=== PATIENT | male | born 1970 | race Caucasian/White ===

== ENCOUNTER 2019-07-28 08:10 | Emergency (ER) | payer OTHER ==
[~2019-07-28] VITALS: Ht 182.9 cm; Wt 115.5 kg
[2019-07-28 08:15] VITALS: Ht 182.9 cm; Wt 115.5 kg
[2019-07-28] MEDS ORDERED: NORVASC5 MG PO (08:17)
[2019-07-28] MEDS ORDERED: BOTOX200 UNIT INTRADERM (08:18)
[2019-07-28] MEDS ORDERED: LIPITOR20 MG PO (08:19)
[2019-07-28] MEDS ORDERED: PAMELOR10 MG PO (08:19)
[2019-07-28] MEDS ORDERED: PLAVIX75 MG PO (08:20)
[2019-07-28] MEDS ORDERED: VITAMIN D31000 UNI2 PO (08:20)
[2019-07-28] MEDS ORDERED: OMEPRAZOLE20 M1 PO (08:21)
[2019-07-28] MEDS ORDERED: VIAGRA100 MG PO (08:22)
[2019-07-28 08:58] LABS: ANION GAP 11.2 mmol/L (8-16); BASOPHILS 0.3 % (0-2); CALCIUM 9.5 mg/dL (8.5-10.1); CREATININE - SERUM 1.3 mg/dL (0.6-1.3); EOSINOPHILS 3.4 % (0-7); HEMATOCRIT 52.1 % (42.0-54.0); HEMOGLOBIN 17.4 g/dL (13.5-17.5); IMMATURE GRANULOCYTES 0.3 % (0-5); LYMPHOCYTES 34.9 % (15-50); MCH 29.4 pg (26.0-34.0); MCHC 33.4 g/dL (31.0-37.0); MCV 88.2 fL (80.0-100.0); MEAN PLATELET VOLUME 9.7 fL (7.4-10.4); MONOCYTES 8.5 % (2-11); NEUTROPHILS 52.6 % (40-80); PLATELET COUNT 330 10x3/uL (130-400); POTASSIUM - SERUM 4.2 mmol/L (3.5-5.1); RBC 5.91 10x6/uL (4.20-6.10); RDW 13.5 % (11.5-14.5); WBC 8.9 10x3/uL (4.8-10.8)
[2019-07-28 09:04] LABS: ALBUMIN 4.5 g/dL (3.4-5.0); BILIRUBIN - TOTAL 0.92 mg/dL (0.2-1.3); PROTEIN - SERUM 8.7 g/dL (6.4-8.2)
[2019-07-28 09:28] VITALS: BP 129/84
== END 2019-07-28 10:43 | disposition home or self-care (01) ==
LOC: D.ER 08:10
PROVIDERS: Family Medicine
DX: G43.909 Migraine, unspecified, not intractable, without status migrainosus (principal); Z86.73 Personal history of transient ischemic attack (TIA), and cerebral infarction without residual deficits; I10 Essential (primary) hypertension

== ENCOUNTER 2019-08-02 00:30 | Emergency (ER) | payer OTHER ==
[~2019-08-02] VITALS: Ht 182.9 cm; Wt 115.5 kg
[~2019-08-02 00:30] MED LIST: BOTOX200 UNIT INTRADERM; LIPITOR20 MG PO; NORVASC5 MG PO; OMEPRAZOLE20 M1 PO; PAMELOR10 MG PO; PLAVIX75 MG PO; VIAGRA100 MG PO; VITAMIN D31000 UNI2 PO
[2019-08-02 00:33] VITALS: Ht 182.9 cm; Wt 115.5 kg
[2019-08-02] MEDS ORDERED: ACETAMINOPHEN500 M1 PO (00:35)
[2019-08-02] MEDS ORDERED: VITAMIN D31000 UNIT PO (00:36)
[2019-08-02] MEDS ORDERED: [UNRECOGNIZED DRUG - REMARK] (00:37)
[2019-08-02 01:34] LABS: BASOPHILS 0.2 % (0-2); EOSINOPHILS 2.3 % (0-7); HEMATOCRIT 45.3 % (42.0-54.0); HEMOGLOBIN 15.2 g/dL (13.5-17.5); IMMATURE GRANULOCYTES 0.6 % (0-5); LYMPHOCYTES 25.6 % (15-50); MCH 29.1 pg (26.0-34.0); MCHC 33.6 g/dL (31.0-37.0); MCV 86.8 fL (80.0-100.0); MEAN PLATELET VOLUME 9.3 fL (7.4-10.4); MONOCYTES 9.8 % (2-11); NEUTROPHILS 61.5 % (40-80); PLATELET COUNT 274 10x3/uL (130-400); RBC 5.22 10x6/uL (4.20-6.10); RDW 13.3 % (11.5-14.5); WBC 9.3 10x3/uL (4.8-10.8)
[2019-08-02 01:40] LABS: CALC OSMOLALITY 282 mosm/kg (275-300); CALCIUM 8.5 mg/dL (8.5-10.1); CARBON DIOXIDE 24.4 mmol/L (21.0-32.0); CHLORIDE - SERUM 105 mmol/L (98-107); CREATININE - SERUM 1.1 mg/dL (0.6-1.3); GLUCOSE 151 mg/dL (74-106); POTASSIUM - SERUM 3.8 mmol/L (3.5-5.1); SODIUM 141 mmol/L (136-145); UREA NITROGEN 11 mg/dL (7-18); eGFR NON AFRICAN AMERICAN 76 mL/min (90-120)
[2019-08-02 01:41] LABS: APTT 27.3 SECONDS (22.8-39.4); INR 1.03 (0.85-1.17)
[2019-08-02 01:55] LABS: ALBUMIN 3.9 g/dL (3.4-5.0); ALKALINE PHOSPHATASE 133 U/L (46-116); ALT (SGPT) 31 U/L (10-68); BILIRUBIN - TOTAL 0.54 mg/dL (0.2-1.3); CKMB 0.9 U/L (0.0-3.6); CREATINE KINASE 116 UL (21-232); MAGNESIUM - SERUM 2.2 mg/dL (1.8-2.4); PROTEIN - SERUM 7.7 g/dL (6.4-8.2); THYROID STIMULATING HORMONE 4.07 uIU/mL (0.36-3.74); TROPONIN-I < 0.017 ng/mL (0.000-0.060)
[2019-08-02 06:30] VITALS: BP 128/78
== END 2019-08-02 06:44 | disposition other institution (70) ==
LOC: D.ER 00:30
PROVIDERS: Family Medicine
DX: R42 Dizziness and giddiness (principal); R11.0 Nausea; Z86.73 Personal history of transient ischemic attack (TIA), and cerebral infarction without residual deficits; I10 Essential (primary) hypertension; E78.5 Hyperlipidemia, unspecified